=== PATIENT | female | born 1955 | race Caucasian/White ===

== ENCOUNTER → 2017-12-21 | Outpatient (CLI) | payer OTHER ==
--- NOTE | 2017-12-21 23:05 | MR ---
EXAMINATION TYPE: MR cervical spine wo con DATE OF EXAM: 12/21/2017 COMPARISON: NONE HISTORY: TECHNIQUE: Multiplanar, multisequence images of the cervical spine were acquired. The cervical vertebra have normal alignment. There is mild narrowing and decreased signal in the disk s at C5-6 C6-7. There are small posterior disc bulges at C5-6 C6-7 with small herniations. Cervical s pan cord has normal signal pattern. There is no edema. There is no spinal stenosis. Canal measures 9 mm at C6-7 and 9 mm at C5-6. The brainstem is intact. There is no compression fracture. I see no fo stacey bone destruction. IMPRESSION: Multilevel small posterior disc bulging and herniation from C3 to T1 T2 disc. No spinal stenosis. No fracture.
== END | disposition home or self-care (01) ==
LOC: RADMRIMAIN 18:35
PROVIDERS: ATTEND Internal Medicine
DX: M50.23 Other cervical disc displacement, cervicothoracic region (principal)
CPT/HCPCS: 72141

== ENCOUNTER → 2018-03-07 | Outpatient (CLI) | payer OTHER ==
[2018-03-07 12:52] VITALS: RESP 18
[2018-03-07 13:31] VITALS: BP 116/69; PULSE 53
--- NOTE | 2018-03-07 13:39 | P.PAINPG ---
Subjective Progress Note Date: 03/07/18 Principal diagnosis: Cervical radiculopathy, low back pain This is a very pleasant 62-year-old woman with a history of long-standing low back pain as well as neck pain. Today she reports that her back pain is worse than her neck pain. It is mainly centered in her low back over her upper buttocks region. She works as a secretary to the vice president and finds that this exacerbates her pain. She also complains of pain which shoots down her right arm from her shoulder to about her elbow. This is worse with axial rotation to her neck. She has dissipated in physical therapy on multiple occasions. She sees a chiropractor every 2 weeks. She has not found anything which effectively relieves her symptoms. She denies bowel or bladder dysfunction. Objective - Vital Signs Vital signs: Vital Signs Temp Pulse 53 L 03/07/18 12:55 Resp 18 03/07/18 12:55 BP 116/69 03/07/18 12:55 Pulse Ox 100 03/07/18 12:55 Intake & Output 03/06/18 03/07/18 03/07/18 18:59 06:59 18:59 Weight 63.503 kg - Exam General: The patient is alert and oriented. Patient is not sedateded Patient is a question appropriately. Cardiac: Heart is regular in rate and rhythm Respiratory: Clear to auscultation. No audible wheezes. Abdomen: Soft nontender nondistended. Lower extremities: Strength is normal bilaterally. Sensation is normal bilaterally. Reflexes are preserved and symmetric bilaterally. Straight leg raise is negative bilaterally. Sacroiliac maneuvers are positive for exacerbation of symptoms bilaterally. She is also minimally tender over the lumbar facets bilaterally. Spurling's maneuver is positive. She demonstrates normal strength in the upper extremities. Reflexes are normal in the upper extremities as well. Assessment and Plan Assessment: Plan of Care 1. Medications: Patient currently takes no medications and is not interested in taking any medications to treat her problems. I do not think that chronic opiates would play any role in her care. . 2. Interventions: We'll schedule patient for bilateral sacroiliac joint injections. She will then follow up in our week after she undergoes these injections. If these are not helpful for her, we will order an MRI of her lumbar spine to evaluate for disc pathology. 3. Referrals: Patient may benefit from a referral to a hotel concierge given her multiple arthritic complaints. I suggest this to her for discussion with her primary care physician. 4. Testing: None 5. Psychological: She denies significant depression or anxiety. (1) Bilateral sacroiliitis Current Visit: Yes Status: Acute Code(s): M46.1 - SACROILIITIS, NOT ELSEWHERE CLASSIFIED SNOMED Code(s): 07430194 (2) Cervical radiculopathy Current Visit: Yes Status: Acute Code(s): M54.12 - RADICULOPATHY, CERVICAL REGION SNOMED Code(s): 00687623 PQRS Measure Charge Sheet Measure #130: Documentation of Current Meds in Medical Chart: Patient's medications documented in chart Measure #226: Tobacco Use: Screen & Cessation Intervention: Pt not a tobacco user Measure #111: Pneumonia Vaccination: Pneumococcal vaccine NOT administered or previously given Measure #47: Advance Care Plan: Advance care planning discussed & documented, pt chose/unable to give Measure #412: Opioid Treatment Agreement: No documentation of signed opioid treatment agreement Measure #408: Opioid Therapy Follow-up Evaluation: Patient had NO f/u eval minimum every 3 months during opioid therapy Measure #317: Preventitive Care & Scrn High Bld Press & F/U: Normal blood pressure, f/u not required Measure #128: Body Mass Index (BMI) Screening & Follow-up: BMI documented ABOVE normal parameters - f/u documented Measure #131: Pain Assessment & Follow-up: Pain positive & plan documented Measure #431: Unhealthy Alcohol Use Preventative Care & Scrn: Patient not identified as an unhealthy alcohol user PQRS Narrative: Smoking Status Never smoker Do You Want the Pneumonia No Vaccine AT THIS TIME? Blood Pressure 116/69 Pain Intensity [Lower Back] 8 Pain Intensity [Neck] 7 Hx Alcohol Use (MH) Yes: SOCIAL Home Medications: Ambulatory Orders Albuterol Inhaler [Ventolin Inhaler] 1 - 2 puff INHALATION Q4-6H PRN 04/25/14 Escitalopram [Lexapro] 5 mg PO HS 04/25/14 Estrogens, Conjugated [Premarin] 0.3 mg PO DIRECTED 04/25/14 Fluticasone/Salmeterol [Advair 250-50 Diskus] 1 puff IH DAILY 04/25/14 Montelukast [Singulair] 10 mg PO HS 04/25/14 Controlled Substance Measures - Controlled Substance Measures Is patient prescribed a controlled substance at discharge?: No
== END | disposition home or self-care (01) ==
LOC: PNWHC3 12:19
PROVIDERS: ATTEND Pain Medicine Pain Medicine
DX: M46.1 Sacroiliitis, not elsewhere classified (principal); M54.12 Radiculopathy, cervical region; Z79.899 Other long term (current) drug therapy; Z79.51 Long term (current) use of inhaled steroids
CPT/HCPCS: 99211

== ENCOUNTER 2018-03-27 06:26 | Day surgery (SDC) | payer OTHER ==
[2018-03-22 15:54] VITALS: BMI 21.2
[2018-03-27 06:59] VITALS: RESP 16; TEMP 98.3
[2018-03-27] MEDS ORDERED: LIDOCAINE 1% 20 ML VIAL (10MG/ML) FOR IV START SQ ONE (06:59)
[2018-03-27] MEDS ORDERED: LACTATED RINGERS 1,000 ML IV SCH (07:00)
--- NOTE | 2018-03-27 07:44 | P.PCN ---
Date of Procedure: 03/27/18 Procedure(s) Performed: Preoperative diagnoses= 1-bilateral sacroiliitis. 2-cervical radiculopathy Postoperative diagnoses= same as preoperative diagnosis. Procedure= bilateral sacroiliac joint steroid injection under fluoroscopic guidance. Anesthesia= moderate sedation with Versed 2 mg and fentanyl 50 micrograms and local infiltration with lidocaine 1% 4 ml Estimated blood loss=minimal. Procedure indication= the patient had a history of severe chronic low back pain , diagnosed with sacroiliitis and lumbar sacral facet arthropathy unresponsive to conservative treatment. Procedure description= the patient was seen and identified in the preoperative holding area, risks and benefits and alternative of the procedure and possible complications discussed with the patient, and he agreed with the preceding, patient signed the consent, an IV was started, and vital signs were monitored and were stable throughout the procedure, patient was placed in the prone position or table and the lumbosacral area was prepped and draped with a sterile fashion, vital signs were closely monitored during the procedure, the fluoroscopy camera was placed in the contralateral oblique view on the right sacroiliac joint and the lower part of the joint was identified, local infiltration of the skin and subcutaneous tissue with lidocaine 1% 2 mL then a 22-gauge Quincke-type spinal needle advanced slowly under fluoroscopy and placed in the posterior and inferior border of the right sacroiliac joint, placement confirmed with AP and lateral view, and after appropriate needle placement confirmed and after negative aspiration for heme and CSF and there was no paresthesia during the injection, 3 ml of Marcaine 0.5% and 40 mg of Kenalog injected after negative aspiration, the needle removed, and the entire same procedure was repeated for the left sacroiliac joint Patient tolerated the procedure well without any complication, The patient returned to supine position after the back was cleaned and a Band- Aid applied, the patient transported to recovery room in stable condition and he was monitored for 30 minutes before he was discharged home and then patient was reexamined before going home and patient was discharged in stable condition and patient will follow up with the pain clinic in a few weeks
[2018-03-27] MEDS ORDERED: IV FLUID CONTINUATION 1,000 ML IV ONE (07:49)
--- NOTE | 2018-03-27 08:09 | FL ---
EXAMINATION TYPE: FL guided pain mgmt statistic DATE OF EXAM: 03/27/2018 FLUOROSCOPY Fluoroscopy time of 6 seconds was used during bilateral SI joint injections. 2 image/s document/s th e procedure.
[2018-03-27 08:20] VITALS: BP 109/70; PULSE 51
== END 2018-03-27 09:56 | disposition home or self-care (01) ==
LOC: ORPAIN 06:26
PROVIDERS: ATTEND Specialist
DX: G89.29 Other chronic pain (principal); M46.1 Sacroiliitis, not elsewhere classified; M54.12 Radiculopathy, cervical region; J45.909 Unspecified asthma, uncomplicated; I34.1 Nonrheumatic mitral (valve) prolapse; Z88.6 Allergy status to analgesic agent; Z98.51 Tubal ligation status
CPT/HCPCS: 27096; J2250; J3301; J3010

== ENCOUNTER → 2020-08-05 | Outpatient (CLI) | payer MEDICARE ==
--- NOTE | 2020-08-05 08:43 | BD ---
EXAMINATION TYPE: Axial Bone Density DATE OF EXAM: 08/05/2020 COMPARISON: 03/27/2014 CLINICAL HISTORY: Postmenopausal female. Known osteoporosis. Height: 67 IN Weight: 143 LBS FRAX RISK QUESTIONS: Secondary Osteoporosis: 3. Menopause before 45: PARTIAL HYST AGE 41 RISK FACTORS HISTORY OF: Active: YES Postmenopausal woman: PARTIAL HYST AGE 41 Take estrogen and/or progesterone medications: YES How long: PREMARIN CREAM OFF AND ON 10 YEARS MEDICATIONS: Thyroid Medications: YES Which medication: Levothyroxine How Lon YEARS Additional Medications: CALCIUM, MAGNESIUM, ZINC, LEVOTHYROXINE, PREMARIN CREAM, ASTHMA MEDS, VIT D, ZETIA, LEXAPRO, EXAM MEASUREMENTS: Bone mineral densitometry was performed using the [email or web address] System. Bone mineral density as measured about the Lumbar spine is: ----- L1-L4(G/cm2): 1.130 T Score Values are as follows: ----- L2: -0.2 ----- L3: 0.3 ----- L4: -1.3 ----- L1-L4: -0.4 Bone mineral density has: Decreased -5.1% since study of: 03/27/2014 Bone mineral density about the R hip (g/cm2): 0.854 Bone mineral density about the L hip (g/cm2): 0.850 T Score values are as follows: -----R Neck: -1.3 -----L Neck: -1.3 -----R Total: -0.5 -----L Total: -0.6 Bone mineral density has: Decreased -2.2% since study of: 03/27/2014 IMPRESSION: Osteopenia (T Score between -2.5 and -1) remains present in both hips. There remains slightly increased risk of fracture and the patient may be considered for treatment. Re-Screen 2-5 years. NOTE: T-SCORE=SD OF THE YOUNG ADULT MEAN.
== END | disposition home or self-care (01) ==
LOC: RADBDWWP 07:52
PROVIDERS: ATTEND Internal Medicine
DX: M85.89 Other specified disorders of bone density and structure, multiple sites (principal)
CPT/HCPCS: 77080

== ENCOUNTER → 2021-04-17 | Outpatient (CLI) | payer OTHER | END | disposition home or self-care (01) ==

== ENCOUNTER → 2021-04-29 | Outpatient (CLI) | payer MEDICARE ==
[2021-04-29 08:08] LABS: African American GFR (CKD) >90 (>60 ml/min/1.73 sqM); Blood Urea Nitrogen 14 mg/dL (7-17); Non-African American GFR(CKD) 88 (>60 ml/min/1.73 sqM)
--- NOTE | 2021-04-29 09:29 | CT ---
EXAMINATION TYPE: CT abdomen pelvis w con DATE OF EXAM: 04/29/2021 COMPARISON: None HISTORY: Frequent UTIs, abn US, Lt sided pain CT DLP: 459 mGycm CONTRAST: CT scan of the abdomen and pelvis is performed with Oral Contrast and with IV Contrast, patient injec anirudh with 100 mL of Isovue 300. FINDINGS: LUNG BASES-: No visible nodule. No infiltrate. Small hiatal hernia LIVER/GB: No calcified gallstones. No space occupying hepatic lesion. Biliary tree is of normal ca liber. PANCREAS: No inflammation. No distinct mass. SPLEEN: No splenic enlargement. No lesion seen. ADRENALS: No nodule. No thickening. KIDNEYS/BLADDER: No hydronephrosis. No nephrolithiasis. No distinct renal mass. Urinary bladder g rossly unremarkable. BOWEL: Normal appendix. Normal bowel caliber. No inflammation. Moderate fecal stasis. GENITAL ORGANS: No gross abnormality. LYMPH NODES: No greater than 1cm abdominal or pelvic lymph nodes are appreciated. AORTA: No significant abnormality. OSSEOUS STRUCTURES: No significant abnormality is seen. OTHER: No significant additional abnormality is seen. IMPRESSION: 1. Moderate fecal stasis. 2. Small hiatal hernia.
== END | disposition home or self-care (01) ==
LOC: RADCTMAIN 07:20
PROVIDERS: ATTEND Internal Medicine
DX: R19.5 Other fecal abnormalities (principal); K44.9 Diaphragmatic hernia without obstruction or gangrene
CPT/HCPCS: 82565; 84520; 74177; 36415; Q9967

== ENCOUNTER → 2021-05-26 | Outpatient (CLI) | payer MEDICARE | END | disposition home or self-care (01) | LOC: LABWHC1 12:43 | PROVIDERS: ATTEND Ophthalmology | DX: M35.00 Sjogren syndrome, unspecified (principal) | CPT/HCPCS: 36415; 86235 ==

== ENCOUNTER → 2022-08-06 | Outpatient (CLI) | payer MEDICARE ==
--- NOTE | 2022-08-06 15:52 | MR ---
EXAMINATION TYPE: MR lumbar spine wo con DATE OF EXAM: 08/06/2022 2:46 PM COMPARISON: 05/31/2022. CLINICAL INDICATION:Female, 67 years old with history of M54.50 Low back pain; TECHNIQUE: Multi planar, multi sequence imaging was performed utilizing: T1-weighted, T2-weighted, a nd turbo inversion recovery imaging of the lumbar spine. IV Contrast: None FINDINGS: Alignment: The lumbar vertebral bodies have preserved heights with grade 1 anterolisthesis of L4 and L5. Cord: The conus medullaris and the distal spinal cord appear unremarkable with regards to their signa l intensity and morphology. Bones/Discs: Reactive bone edema is noted at the adjoining endplates of L2 and L3. Multilevel degener ative disc disease is noted and most pronounced at the L2-L3. Multilevel disc desiccation is present. L1-L2: No significant disc pathology. Spinal canal is patent. The neural foramen are patent. L2-L3: No significant disc pathology. Spinal canal is patent. The neural foramen are patent. L3-L4: Disc bulge and facet joint arthropathy without significant spinal canal or neural foraminal st enosis. L4-L5: Disc uncovering is present. There is mild disc bulging and facet joint arthropathy which narro ws the ventral subarachnoid space. Spinal canal is patent. Mild bilateral neural foraminal stenosis. L5-S1: No significant disc pathology. Spinal canal is patent. Bilateral facet arthropathy is present. The neural foramen are patent. Other findings: None. IMPRESSION: 1. No definitive evidence of disc herniation or significant spinal canal stenosis. 2. Multilevel disc degeneration with associated osteoarthritic changes worse at L2-L3 with reactive bony edema.
== END | disposition home or self-care (01) ==
LOC: RADMRIMAIN 14:05
PROVIDERS: ATTEND Internal Medicine
DX: M51.36 Other intervertebral disc degeneration, lumbar region (principal); M47.816 Spondylosis without myelopathy or radiculopathy, lumbar region
CPT/HCPCS: 72148

== ENCOUNTER → 2022-08-30 | Outpatient (CLI) | payer MEDICARE ==
[2022-08-30 12:24] VITALS: BP 159/82; PULSE 61; RESP 18; TEMP 97.9
--- NOTE | 2022-08-30 14:51 | P.PAINPG ---
PQRS Measure Charge Sheet Comment: HISTORY OF PRESENT ILLNESS: 67 yr old female as a referral from Dr Lau presents today w severe and chronic LBP secondary to DDD and BL sacroiliitis for evaluation. Pt states pain level is at 8/10 in intensity, constant, localized in the lower lumbar spine, achy in character w constant shooting pain towards R hip and BLEs. Pain is provoked by lifting, bending. Pain is alleviated by PT x 4 wks in Jul 2022, currently in chiropractic treatments semi monthly for years, heat, ice, meds (Ibu, Aleve), topicals, home exercise as tolerated, reclining and rest. PMH: OA, Asthma PSH: Colonoscopy (2013), BL SI injection (2018), T & A in childhood, Breast Biopsy, Hysterectomy w Partial Oophorectomy SH: Negative x 3 FH: Fa- Asthma/ Colon CA. Mo- MD/ CVA. All: See list Meds: See list REVIEW OF ORGAN SYSTEMS: CONSTITUTIONAL: No fevers or chills. No recent weight loss. NEUROLOGICAL: + numbness and tingling along the distal extremities. No seizure disorders or headaches. MUSCULOSKELETAL: + pain PSYCHIATRIC: Denies current depression or suicidal thoughts. Physical Examinations : Constitutional : Cooperative , not in acute distress . Neurologic : Cranial nerve II to XII intact. No focal neurological deficits. Psychiatric : alert & oriented x 3. Matching mood & appropriate affect. Judgment & insight intact. Musculoskeletal : Cervical Spine Motor strength in the deltoid and biceps: Normal right side. Normal Left side Motor strength biceps and the wrist extensors: Normal right side . Normal left side Motor strength in the triceps muscle: Normal right side. Normal left side Deep tendon reflexes: Normal at the biceps. Normal at Brachioradialis. Normal at triceps Vertebral body tenderness to deep palpation over Cervical facet loading test: positive bilaterally Spurling test: positive bilaterally Neck distraction test: positive bilaterally Lisa sign: positive bilaterally Lumbar spine Motor strength lower extremities ,thigh and legs 5/5 Right side , 5/5 Left side Deep tendon reflexes : Normal Knee Jerk. Normal Ankle Jerk Vertebral body tenderness over Lumbar facet Loading Test: positive Right / positive Left Range of motion of the lumbar spine Flexion 30 degrees, extension 10 degrees Straight Leg Raise test: Left/ Right positive at degree Gualberto test: positive right / positive left. Severe tenderness over the Sacroiliac joint on the Right / Left sides Gaenslen test: positive bilaterally Seated flexion test: positive bilaterally. Sacral spine : Severe tenderness over the Sacroiliac joint: right side / left side Range of motion: Flexion of the lumbar spine <60 degrees Range of motion: Extension of the lumbar spine <20 degrees Gaenslen's Test positive BL Gualberto test: positive right side / left side Thigh Thrust Test on L R Sacral Thrust Test Imaging: MRI without contrast of the lumbar spine from 08/06/22 reviewed Assessment/ Plan : Lumbar DDD Recommendation of BL SI injection. May need a series of injections, up to 4 within a 12 mo period, for optimal pain relief. Risks, benefits of procedure discussed and patient verbalized understanding. Denies aspirin or anti- coagulant use or medical history of diabetes. Protocol for discontinuation/ continuation of medications rk procedure discussed. All questions answered. I have spent greater than 30 minutes on patient care today. Dr Ho was available by phone for the evaluation of this patient. The time was used to review the medical records including relevant urine studies and Prescription hi story (MAPs), review of the available imaging, evaluation and examination of the patient, coordination of care with the medical staff and if applicable referring physicians, as well as creation of the medical record PQRS Narrative: Smoking Status Never smoker Hx Alcohol Use (MH) Yes: SOCIAL Home Medications: Ambulatory Orders Albuterol Inhaler [Ventolin Inhaler] 1 - 2 puff INHALATION Q4-6H PRN 04/25/14 Escitalopram [Lexapro] 5 mg PO HS 04/25/14 Montelukast [Singulair] 10 mg PO HS 04/25/14 Budesonide/Formoterol Fumarate [Symbicort 160-4.5 Mcg Inhaler] 1 puff INHALATION BID 03/22/18 Controlled Substance Measures - Controlled Substance Measures Is patient prescribed a controlled substance at discharge?: No
== END ==
LOC: PNWHC3 11:13
PROVIDERS: ATTEND Specialist
DX: M51.36 Other intervertebral disc degeneration, lumbar region (principal); Z88.6 Allergy status to analgesic agent
CPT/HCPCS: 99211

== ENCOUNTER 2022-10-05 11:03 | Day surgery (SDC) | payer MEDICARE ==
[~2022-10-05 11:03] MED LIST: LACTATED RINGERS 1,000 ML IV SCH; LIDOCAINE 1% (10MG/ML) FOR IV START INTRADERMA PRN
[2022-10-05 11:50] VITALS: TEMP 98
[2022-10-05] MEDS ORDERED: MIDAZOLAM 2 MG/2 ML VIAL ONE (12:18)
[2022-10-05] MEDS ORDERED: fentaNYL (PF) 50 MCG/ML 2 ML AMP ONE (12:18)
[2022-10-05] MEDS ORDERED: ROPIVACAINE 5 MG/ML 20 ML AMPULE ONE (12:18)
[2022-10-05] MEDS ORDERED: methylPREDNISolone ACETATE 80 MG/ML 1 ML VIAL ONE (12:18)
--- NOTE | 2022-10-05 12:29 | P.PCN ---
Date of Procedure: 10/05/22 Procedure(s) Performed: Procedure= bilateral sacroiliac joints steroid injection under fluoroscopy guidance (fluoroscopy image stored on file in the radiology Department ) Preoperative diagnosis= 1-sacroiliitis Postoperative diagnosis=Same as preop Diagnosis . Complication = none Condition= stable Anesthesia= moderate sedation with intravenous Versed 2 mg , and fentanyl 50 micrograms . Sedation start time:12:21 Sedation end time : 12:27 Indication for the procedure= patient complaining of low back pain , examination was positive for severe tenderness over the sacroiliac joints bilaterally and patient diagnosed with sacroiliitis, for this reason , she was good candidate for sacroiliac joint steroid injection. Description of the procedure= procedure risk and benefits discussed with the patient, including but not limited, risk of infection and bleeding, and ALLERGIC reaction to the medication and not complete pain relief and patient agreed with the preceding patient taken to the operating room, placed in prone position or standard monitors applied to the patient then after induction of anesthesia back prepped with chlorhexidine 3 times , Then under strict sterile technique, first I did the right sacroiliac joint the which was identified under fluoroscopy guidance been local infiltration of the skin and subcu interstitial with lidocaine 1% then 22-gauge Quincke Needle advanced slowly under fluoroscopy and placed in the right sacroiliac joint needle placement confirmed with AP and oblique and lateral view and after appropriate needle placement confirmed and after negative aspiration, or heme , then Ropivacaine 0.5% 4 mL, and 30 mg of Depo-Medrol mixed together and injected in the right sacroiliac joint after negative aspiration patient tolerated the procedure well without any complication. Then the left sacroiliac joint steroid injection done under strict sterile technique local infiltration of the skin and subcu interstitial at the location of the left sacroiliac joint then a 22-gauge Quincke Needle advanced slowly under fluoroscopy time placed in the left sacroiliac joint, needle placement confirmed with AP and oblique and lateral view then after appropriate needle placement confirmed and after negative aspiration 0.5% Ropivacaine 4 mL and 30 mg of Depo-Medrol injected in the left sacroiliac joint after negative aspiration patient tolerated the procedure well that any complications and she will follow up in clinic 3 weeks
[2022-10-05] MEDS ORDERED: LACTATED RINGERS 800 ML IV ONE (12:32)
[2022-10-05 12:35] VITALS: RESP 16
[2022-10-05 12:49] VITALS: BP 126/77; PULSE 65
--- NOTE | 2022-10-05 12:49 | FL ---
Intraoperative/procedural fluoroscopic services were provided for bilateral SI joint injection. Total fluoroscopy time is 3 seconds with a total of 2 submitted images to PACS. Please see the operative n ote for further details.
== END 2022-10-05 13:02 | disposition home or self-care (01) ==
LOC: ORPAIN 11:03
PROVIDERS: ATTEND Specialist
DX: M46.1 Sacroiliitis, not elsewhere classified (principal)
CPT/HCPCS: J2250; J1040; J3010; J2795; G0260

== ENCOUNTER → 2022-10-25 | Outpatient (CLI) | payer MEDICARE ==
[2022-10-25 11:15] VITALS: BP 124/79; PULSE 50; RESP 18; TEMP 98.1
--- NOTE | 2022-10-25 15:23 | P.PAINPG ---
Objective - Vital Signs Vital signs: Vital Signs Temp 98.1 F 10/25/22 11:11 Pulse 50 L 10/25/22 11:11 Resp 18 10/25/22 11:11 BP 124/79 10/25/22 11:11 Pulse Ox 98 10/25/22 11:11 FiO2 PQRS Measure Charge Sheet Mode of Arrival: Ambulatory Comment: A 67 yr old female with a history of severe and chronic low back pain secondary to lumbar DDD and spondylosis with facet arthropathy without myelopathy presents today for evaluation s/p BL SI injection. Pt states she experienced 50 % pain relief x 2 wks s/p procedure. Pain level is provoked at 6 /10 in intensity, constant, localized in the lumbar spine, achy/ tight in character w shooting towards the L hip and groin. Pain is provoked by bending, walking. Pain is alleviated with PT in May 2022, home exercise as tolerated, chiropractic treatments semin monthly, alternating heat & ice, meds (Motrin, Aleve OTC), sitting and rest. Interventional pain procedures completed include BL SI injection Patient is currently on Motrin OTC, Aleve OTC Patient denies any side effects of the medication(s), denies excessive drowsiness or sleepiness, denies suicidal ideation and reports that the current pain medication is helping to control the pain and improve activities of daily living. Patient denies any motor or sensory deficits. Patient denies any fever or night sweats, denies any change in the bowel movements or urination. Physical Examination: -Constitutional: Cooperative. Not in acute distress . - Neurologic: Cranial nerve II to XII intact. No focal neurological deficits. - Psychatric: Alert & oriented x 3. Matching mood & appropriate affect. Judgment and insight intact. - Musculoskeletal: Cervical spine: Muscle bulk/ tone/ strength in the bilateral upper extremities normal Vertebral body tenderness to palpation over Spurling test positive Distraction test positive Facet loading test positive Thoracic spine Muscle bulk / tone/ strength in the bilateral paraspinal muscles normal Vertebral body tender to palpation over Facet loading test positive Lumbar spine: Motor bulk/ tone/ strength lower extremities , thigh and legs : 5/5 Deep tendon reflexes : Normal Knee Jerk. Normal Ankle Jerk . Vertebral body tenderness to palpation over L4 Lumbar Facet Loading Test positive Straight Leg Raise: positive at 30 degrees right side/ left side Gaenslen's Test positive Sacral spine : Severe tenderness over the Sacroiliac joint: right side / left side Range of motion: Flexion of the lumbar spine <60 degrees Range of motion: Extension of the lumbar spine <20 degrees Gaenslen's Test positive Gualberto test: positive right side / left side Thigh Thrust Test Sacral Thrust Test Assessment and plan: Chronic low back pain secondary to lumbar degenerative disc disease, spondylosis with facet arthropathy without myelopathy Recommendation of FORTUNATO L paramedian L4-L5 #1. May need a series of injections, up to 3 within a 6 mo period, for optimal pain relief. Risks, benefits of procedure discussed and pt verbalized understanding. Admits to anticoagulant use or medical history of diabetes. Protocol for discontinuation/ continuation of medications rk procedure discussed. All patient questions answered I have spent less than 30 minutes on patient care today. Dr Ho was available by phone for the evaluation of this patient. The time was used to review the medical records including relevant urine studies and Prescription history (MAPs), review of the available imaging, evaluation and examination of the patient, coordination of care with the medical staff and if applicable referring physicians, as well as creation of the medical record - Pain Location Lower Back Non-Pharmacological Interventions: Chiropractic Treatment, Heat, Home Exercise, Ice, Inactivity, Physical Therapy, Position/Reposition, Sitting, Stretching Pharmacological Interventions: PRN Medication, Topical Medication PQRS Narrative: Smoking Status Never smoker Blood Pressure 124/79 Pain Intensity [Lower Back] 6 Scale Used Numeric (1 - 10) Hx Alcohol Use (MH) Yes: SOCIAL Home Medications: Ambulatory Orders Albuterol Inhaler [Ventolin Inhaler] 1 - 2 puff INHALATION Q4-6H PRN 04/25/14 Escitalopram [Lexapro] 5 mg PO HS 04/25/14 Montelukast [Singulair] 10 mg PO HS 04/25/14 Budesonide/Formoterol Fumarate [Symbicort 160-4.5 Mcg Inhaler] 1 puff INHALATION BID 03/22/18 Ezetimibe [Zetia] 10 mg PO HS 09/30/22 Levothyroxine Sodium [Synthroid] 50 mcg PO QAM 09/30/22 Omeprazole 20 mg PO QAM 09/30/22 Controlled Substance Measures - Controlled Substance Measures Is patient prescribed a controlled substance at discharge?: No
== END ==
LOC: PNWHC3 10:58
PROVIDERS: ATTEND Specialist
DX: M47.816 Spondylosis without myelopathy or radiculopathy, lumbar region (principal); M51.36 Other intervertebral disc degeneration, lumbar region; Z88.6 Allergy status to analgesic agent
CPT/HCPCS: 99211

== ENCOUNTER 2023-01-18 08:47 | Day surgery (SDC) | payer MEDICARE ==
[~2023-01-18 08:47] MED LIST changes: -LIDOCAINE 1% (10MG/ML) FOR IV START INTRADERMA PRN
[2023-01-18] MEDS ORDERED: MIDAZOLAM 2 MG/2 ML VIAL ONE (09:17)
[2023-01-18] MEDS ORDERED: methylPREDNISolone ACETATE 40 MG/ML 1 ML VIAL ONE (09:17)
[2023-01-18] MEDS ORDERED: IOPAMIDOL M200 10 ML VIAL ONE (09:17)
[2023-01-18] MEDS ORDERED: ROPIVACAINE 5 MG/ML 20 ML AMPULE ONE (09:17)
[2023-01-18 09:19] VITALS: TEMP 96.9
--- NOTE | 2023-01-18 09:32 | P.PCN ---
Date of Procedure: 01/18/23 Description of Procedure: Procedure: Sacroiliac joint injection bilateral Preoperative diagnosis: Sacroiliitis Postoperative diagnosis: Sacroiliitis Imaging: Fluoroscopy was used, images where saved to the medical record Complications: none ANESTHESIA: Medication Administered by: Nurse Sedation Type: Moderate sedation Sedation Supervision start time: 917 Sedation Supervision end time: 929 Description of the procedure: procedure risk and benefits discussed with the patient, including but not limited, risk of infection and bleeding, and allergic reaction to the medication and incomplete pain relief. Patient agreed and signed consent. Patient was taken to the room and placed in a prone position. Chlorhexidine was used to cleanse the skin. Under sterile conditions patient skin was anesthetized 1% lidocaine. Subcutaneous tissues were also anesthetized with a total 5 mL of 1% lidocaine. After that, a 22-gauge spinal needle was advanced through the anesthetized location under fluoroscopic guidance. Needle was advanced into the inferior portion of the sacroiliac joint. IV contrast was used to confirm spread within the joint. After adequate spread was achieved, 2.5 ML's of 0.5% ropivacaine with 40 mg of depomedrol was injected into the joint (steroid split between both sides if bilateral). Patient tolerated the procedure well. Sent to the recovery room in stable condition. Patient will follow up as directed.
[2023-01-18] MEDS ORDERED: IV FLUID CONTINUATION 1,000 ML IV ONE (09:40)
--- NOTE | 2023-01-18 09:50 | FL ---
Intraoperative/procedural fluoroscopic services were provided. Total fluoroscopy time is 12.61 second s with a total of 1 submitted images to PACS. Please see the operative/procedural note for further de tails. DAP: [phone]
[2023-01-18 10:05] VITALS: BP 146/77; PULSE 55; RESP 18
== END 2023-01-18 10:25 | disposition home or self-care (01) ==
LOC: ORPAIN 08:47
PROVIDERS: ATTEND Hospitalist
DX: M46.1 Sacroiliitis, not elsewhere classified (principal)
CPT/HCPCS: 99152; J2250; J1030; Q9966; J2795; G0260

== ENCOUNTER → 2023-02-21 | Outpatient (CLI) | payer MEDICARE ==
[2023-02-21 13:16] VITALS: BP 133/78; PULSE 61; RESP 18; TEMP 98.4
--- NOTE | 2023-02-21 13:37 | P.PAINPG ---
PQRS Measure Charge Sheet Comment: A 67 yr old female with a history of severe and chronic LBP secondary to lumbar DDD and spondylosis with facet arthropathy without myelopathy presents today for evaluation s/p[ BL SI injection. Pt states she experienced 100% pain relief x 3 wks s/p procedure. Pain level is provoked at 6/10 in intensity, co nstant, localized in the lumbar spine, achy in character w shooting towards the BL buttocks. Pain is provoked by lifting, sitting. Pain is alleviated with PT x 4 wks in May 2022, chiropractic treatments semi monthly x yrs which she is currently in, medications, topicals, ice, walking, repositioning and rest. Interventional pain procedures completed include BL SI injection Patient is currently on Aleve, Ibu Patient denies any side effects of the medication(s), denies excessive drowsiness or sleepiness, denies suicidal ideation and reports that the current pain medication is helping to control the pain and improve activities of daily living. Patient denies any motor or sensory deficits. Patient denies any fever or night sweats, denies any change in the bowel movements or urination. Physical Examination: -Constitutional: Cooperative. Not in acute distress . - Neurologic: Cranial nerve II to XII intact. No focal neurological deficits. - Psychatric: Alert & oriented x 3. Matching mood & appropriate affect. Judgment and insight intact. - Musculoskeletal: Cervical spine: Muscle bulk/ tone/ strength in the bilateral upper extremities normal Vertebral body tenderness to palpation over Spurling test positive Distraction test positive Facet loading test positive TTP Thoracic spine Muscle bulk / tone/ strength in the bilateral paraspinal muscles normal Vertebral body tender to palpation over Facet loading test positive TTP Lumbar spine: Motor bulk/ tone/ strength lower extremities , thigh and legs : 5/5 Deep tendon reflexes : Normal Knee Jerk. Normal Ankle Jerk . Vertebral body tenderness to palpation over Lumbar Facet Loading Test positive Straight Leg Raise: positive at 30 degrees right side/ left side Gaenslen's Test positive Sacral spine : Severe tenderness over the Sacroiliac joint: right side / left side Range of motion: Flexion of the lumbar spine <60 degrees Range of motion: Extension of the lumbar spine <20 degrees +Gaenslen's Test positive right side / left side Gualberto test: positive right side / left side +Thigh Thrust Test positive right side / left side +Sacral Thrust Test positive right side / left side Assessment and plan: Chronic LBP secondary to lumbar DDD, spondylosis with facet arthropathy without myelopathy Recommendation of BL SI injection. May need a series for optimal pain relief. Risks, benefits of procedure discussed and pt verbalized understanding. Admits to anticoagulant use or medical history of diabetes. Protocol for discontinuation/ continuation of medications rk procedure discussed. Minimal anesthesia provided per pt preference consisting of Versed and Fentanyl. All questions answered. I have spent less than 30 minutes on patient care today. Dr Ho was available by phone for the evaluation of this patient. The time was used to review the medical records including relevant urine studies and Prescription history (MAPs), review of the available imaging, evaluation and examination of the patient, coordination of care with the medical staff and if applicable referring physicians, as well as creation of the medical record PQRS Narrative: Smoking Status Never smoker Hx Alcohol Use (MH) Yes: SOCIAL Home Medications: Ambulatory Orders Albuterol Inhaler [Ventolin Inhaler] 1 - 2 puff INHALATION Q4-6H PRN 04/25/14 Escitalopram [Lexapro] 5 mg PO HS 04/25/14 Montelukast [Singulair] 10 mg PO HS 04/25/14 Budesonide/Formoterol Fumarate [Symbicort 160-4.5 Mcg Inhaler] 1 puff INHALATION BID 03/22/18 Ezetimibe [Zetia] 10 mg PO HS 09/30/22 Levothyroxine Sodium [Synthroid] 50 mcg PO QAM 09/30/22 Omeprazole 20 mg PO HS 09/30/22 Calcium Carb/Mag Ox/Zinc Sulf [Lfc-Yvb-Nkbq 334-134-5 mg Tab] 1 each PO DAILY 11/12/22 Carboxymethylcellulose Sodium [Refresh Tears] 1 drop BOTH EYES DIRECTED PRN 11/12/22 Estrogens, Conjugated Cream [Premarin Vaginal Cream] 1 applicator VAGINAL DIRECTED 11/12/22 Ibuprofen [Motrin Ib] 600 mg PO DIRECTED PRN 11/12/22 Multivit-Min/Iron/Folic/Lutein [Centrum Silver Women Tablet] 1 each PO DAILY 11/12/22 Naproxen Sodium [Aleve] 220 - 440 mg PO DIRECTED PRN 11/12/22 Planada-3/Dha/Epa/Fish Oil [Fish Oil 1,000 mg Softgel] 1 each PO DAILY 11/12/22 Ubidecarenone [Co Q-10] 200 mg PO DAILY 11/12/22 Vitamin B Complex 1 each PO DAILY 11/12/22 Controlled Substance Measures - Controlled Substance Measures Is patient prescribed a controlled substance at discharge?: No
== END ==
LOC: PNWHC3 12:26
PROVIDERS: ATTEND Specialist
DX: M51.36 Other intervertebral disc degeneration, lumbar region (principal); M47.816 Spondylosis without myelopathy or radiculopathy, lumbar region; G89.29 Other chronic pain; Z88.6 Allergy status to analgesic agent
CPT/HCPCS: 99211

== ENCOUNTER 2023-06-14 09:50 | Day surgery (SDC) | payer MEDICARE ==
[2023-06-09 15:08] VITALS: BMI 21.2
[2023-06-14 10:26] VITALS: RESP 16; TEMP 97.3
[2023-06-14] MEDS ORDERED: ROPIVACAINE 5MG/ML 20ML VIAL ONE (10:28)
[2023-06-14] MEDS ORDERED: TRIAMCINOLONE ACETONIDE 40 MG/ML 1 ML VIAL ONE (10:28)
--- NOTE | 2023-06-14 10:37 | P.PCN ---
Date of Procedure: 06/14/23 Surgeon: Kristen Rodrigez Pathology: none sent Condition: stable Disposition: PACU Description of Procedure: Preoperative diagnoses= B/L sacroiliac joint dysfunction and sacroiliitis Postoperative diagnoses= same as preoperative diagnosis. Procedure= Bilateral sacroiliac joint steroid injection under fluoroscopic guidance. Anesthesia= local anesthesia with lidocaine 1% Estimated blood loss=minimal. Procedure indication= the patient had a history of severe chronic low back pain, diagnosed with sacroiliitis and lumbar sacral facet arthropathy unresponsive to conservative treatment. Procedure description= the patient was seen and identified in the preoperative holding area, risks and benefits and alternative of the procedure and possible complications discussed with the patient, patient signed the consent. an IV was started, and vital signs were monitored and were stable throughout the procedure, patient was placed in the prone position or table and the lumbosacral area was prepped and draped with a sterile fashion, vital signs were closely monitored during the procedure.The Rt sacroiliac joint was identified on the AP view of fluoroscopy then the C-arm was tilted to the contralateral oblique position to superimpose the anterior and posterior joint lines on each other and to have a unified joint line with the target point at the inferior one third of this line. I used 22-gauge 3-1/2 inch Quincke spinal needle for this procedure and after getting into the sacroiliac joint I injected 20 mg of Kenalog +2 MLS of Ropivacaine 0.5%. The procedure was repeated on the left side in the same manner. Patient tolerated the procedure well without any complication, The patient returned to supine position after the back was cleaned and a Band- Aid applied, the patient transported to recovery room in stable condition and he was monitored for 30 minutes before she was discharged home in stable condition . patient will follow up with the pain clinic in a few weeks. A copy of the needle placement was saved to the C-arm machine.
[2023-06-14 10:59] VITALS: BP 143/72; PULSE 46
--- NOTE | 2023-06-14 12:54 | FL ---
Intraoperative/procedural fluoroscopic services were provided. Total fluoroscopy time is 1.6 seconds with a total of 2 submitted images to PACS. Please see the operative/procedural note for further deta ils. DAP: [phone] mGym2
== END 2023-06-14 11:00 | disposition home or self-care (01) ==
LOC: ORPAIN 09:50
PROVIDERS: ATTEND Anesthesiology
DX: M46.1 Sacroiliitis, not elsewhere classified (principal); J45.909 Unspecified asthma, uncomplicated
CPT/HCPCS: J3301; J2795; G0260

== ENCOUNTER → 2023-11-21 | Outpatient (CLI) | payer MEDICARE ==
--- NOTE | 2023-11-21 22:05 | XR ---
EXAMINATION TYPE: XR cervical spine 3 views DATE OF EXAM: 11/21/2023 Comparison: None Clinical History: 68-year-old female M50.30 OTHER CERVICAL DISC DEGENERATION, UNSP CERV Findings: No predental space widening or prevertebral soft tissue swelling. Moderate disc/endplate degenerative change particularly from C5 through T1 levels with disc space darren rowing and endplate spondylosis. Additional hypertrophic facet and uncovertebral joint arthropathy is present throughout. Normal odontoid view. Trace grade 1 anterolisthesis C4-C5. Remaining alignment is maintained. Impression: Moderate spondylotic change throughout. Degenerative grade 1 anterolisthesis C4-C5.
== END | disposition home or self-care (01) ==
LOC: RADXRMAIN 14:13
PROVIDERS: ATTEND Physician Assistant Medical
DX: M47.812 Spondylosis without myelopathy or radiculopathy, cervical region (principal); M43.12 Spondylolisthesis, cervical region; M50.33 Other cervical disc degeneration, cervicothoracic region
CPT/HCPCS: 72040

== ENCOUNTER → 2023-11-21 | Outpatient (CLI) | payer MEDICARE ==
[2023-11-21 14:05] VITALS: BP 151/92; PULSE 76; RESP 15; TEMP 98.5
--- NOTE | 2023-11-21 14:44 | P.PAINPG ---
Objective - Vital Signs Vital signs: Intake & Output 11/20/23 11/21/23 11/21/23 18:59 06:59 18:59 Weight 66.678 kg PQRS Measure Charge Sheet Comment: A 67 yr old female with a history of severe and chronic LBP secondary to lumbar DDD and spondylosis with facet arthropathy without myelopathy presents today for evaluation . Pain level is provoked at 8/10 in intensity, constant, localized in the lumbar spine, predominantly axial, achy in character w occasinal shooting towards the BL buttocks. Pain is provoked by lifting, sitting. Pain is alleviated with PT x 4 wks in May 2022, chiropractic treatments semi monthly x yrs which she is currently in, medications, topicals, ice, walking, repositioning and rest. Oswestry axial pain score of 25. Also admits to lower cervical pain x 3 mo, 6/10 in intensity, predominantly axial, dull & achy in character without radiation of pain. Pain is provoked w hyperextension. Pain is alleviated slightly w manual massage, medications, ice, topical, repositioning and rest Interventional pain procedures completed include BL SI injection x2 Patient is currently on Aleve, Ibu Patient denies any side effects of the medication(s), denies excessive drowsiness or sleepiness, denies suicidal ideation and reports that the current pain medication is helping to control the pain and improve activities of daily living. Patient denies any motor or sensory deficits. Patient denies any fever or night sweats, denies any change in the bowel movements or urination. Physical Examination: -Constitutional: Cooperative. Not in acute distress . - Neurologic: Cranial nerve II to XII intact. No focal neurological deficits. - Psychatric: Alert & oriented x 3. Matching mood & appropriate affect. Judgment and insight intact. - Musculoskeletal: Cervical spine: Muscle bulk/ tone/ strength in the bilateral upper extremities normal Vertebral body tenderness to palpation over Spurling test positive Distraction test positive Facet loading test positive TTP Thoracic spine Muscle bulk / tone/ strength in the bilateral paraspinal muscles normal Vertebral body tender to palpation over Facet loading test positive TTP Lumbar spine: Motor bulk/ tone/ strength lower extremities , thigh and legs : 5/5 Deep tendon reflexes : Normal Knee Jerk. Normal Ankle Jerk . Vertebral body tenderness to palpation over Lumbar Facet Loading Test positive Straight Leg Raise: positive at 30 degrees right side/ left side Gaenslen's Test positive Sacral spine : Severe tenderness over the Sacroiliac joint: right side / left side Range of motion: Flexion of the lumbar spine <60 degrees Range of motion: Extension of the lumbar spine <20 degrees +Gaenslen's Test positive right side / left side + Gualberto test: positive right side / left side Thigh Thrust Test positive right side / left side + Sacral Thrust Test positive right side / left side Assessment and plan: Chronic LBP secondary to lumbar DDD, spondylosis with facet arthropathy without myelopathy Recommendation of BL SI injection #3. May need a series of injections for optimal pain relief. Risks, benefits of procedure discussed and patient verbalized understanding. Protocol for discontinuation/continuation of medi cations surrounding procedure discussed. Recommendation of cervical X ray, PT x 6 wks M 50.30 RTC for a re evaluation. All questions answered. I have spent less than 30 minutes on patient care today. Dr Ho was available by phone for the evaluation of this patient. The time was used to review the medical records including relevant urine studies and Prescription history (MAPs), review of the available imaging, evaluation and examination of the patient, coordination of care with the medical staff and if applicable referring physicians, as well as creation of the medical record PQRS Narrative: Smoking Status Never smoker Hx Alcohol Use (MH) Yes: SOCIAL Home Medications: Ambulatory Orders Albuterol Inhaler [Ventolin Inhaler] 1 - 2 puff INHALATION Q4-6H PRN 04/25/14 Escitalopram [Lexapro] 5 mg PO HS 04/25/14 Montelukast [Singulair] 10 mg PO HS 04/25/14 Budesonide/Formoterol Fumarate [Symbicort 160-4.5 Mcg Inhaler] 1 puff INHALATION BID 03/22/18 Ezetimibe [Zetia] 10 mg PO HS 09/30/22 Levothyroxine Sodium [Synthroid] 50 mcg PO QAM 09/30/22 Omeprazole 20 mg PO HS 09/30/22 Calcium Carb/Mag Ox/Zinc Sulf [Fur-Tjx-Nemy 334-134-5 mg Tab] 1 each PO DAILY 11/12/22 Carboxymethylcellulose Sodium [Refresh Tears] 1 drop BOTH EYES DIRECTED PRN 11/12/22 Estrogens, Conjugated Cream [Premarin Vaginal Cream] 1 applicator VAGINAL DIRECTED 11/12/22 Ibuprofen [Motrin Ib] 600 mg PO DIRECTED PRN 11/12/22 Multivit-Min/Iron/Folic/Lutein [Centrum Silver Women Tablet] 1 each PO DAILY 11/12/22 Naproxen Sodium [Aleve] 220 - 440 mg PO DIRECTED PRN 11/12/22 Paradox-3/Dha/Epa/Fish Oil [Fish Oil 1,000 mg Softgel] 2 each PO DAILY 11/12/22 Ubidecarenone [Co Q-10] 200 mg PO DAILY 11/12/22 Vitamin B Complex 1 each PO DAILY 11/12/22 nitrofurantoin macrocrystaL [Nitrofurantoin] 100 mg PO ONCE PRN 06/09/23 Controlled Substance Measures - Controlled Substance Measures Is patient prescribed a controlled substance at discharge?: No
== END ==
LOC: PNWHC3 13:16
PROVIDERS: ATTEND Specialist
DX: M51.36 Other intervertebral disc degeneration, lumbar region (principal); M47.816 Spondylosis without myelopathy or radiculopathy, lumbar region; G89.29 Other chronic pain; Z88.6 Allergy status to analgesic agent
CPT/HCPCS: 99211

== ENCOUNTER 2023-12-01 06:52 | Day surgery (SDC) | payer MEDICARE ==
[2023-11-29 12:43] VITALS: BMI 21.2
[2023-12-01 07:53] VITALS: TEMP 98.1
[2023-12-01] MEDS ORDERED: IOPAMIDOL M200 10 ML VIAL ONE (07:58)
[2023-12-01] MEDS ORDERED: ROPIVACAINE 5MG/ML 20ML VIAL ONE (07:58)
[2023-12-01] MEDS ORDERED: methylPREDNISolone ACETATE 80 MG/ML 1 ML VIAL ONE (07:58)
[2023-12-01] MEDS ORDERED: LACTATED RINGERS 1,000 ML IV SCH (08:01)
--- NOTE | 2023-12-01 08:07 | P.PCN ---
Date of Procedure: 12/01/23 Procedure(s) Performed: Procedure= bilateral sacroiliac joints steroid injection under fluoroscopy guidance (fluoroscopy image stored on file in the radiology Department ) Preoperative diagnosis= 1-sacroiliitis 2-lumbar degenerative disc disease 3- lumbar facet arthropathy Postoperative diagnosis=Same as preop Diagnosis . Complication = none Condition= stable Anesthesia= local anesthesia with ropivacaine 0.5% 4 ml only Indication for the procedure= patient complaining of low back pain , examination was positive for severe tenderness over the sacroiliac joints bilaterally and patient diagnosed with sacroiliitis, for this reason ,she was good candidate for sacroiliac joint steroid injection. Description of the procedure= procedure risk and benefits discussed with the patient, including but not limited, risk of infection and bleeding, and ALLERGIC reaction to the medication and not complete pain relief and patient agreed with the preceding patient taken to the operating room, placed in prone position or standard monitors applied to the patient then after induction of anesthesia back prepped with chlorhexidine 3 times , Then under strict sterile technique, first I did the right sacroiliac joint the which was identified under fluoroscopy guidance been local infiltration of the skin and subcu interstitial with lidocaine 1% then 22-gauge Quincke Needle advanced slowly under fluoroscopy and placed in the right sacroiliac joint needle placement confirmed with AP and oblique and lateral view, then after that Isovue 200 one mL injected which confirmed the correct needle placement with the appropriate arthrogram of the sacroiliac joint, and after appropriate needle placement confirmed and after negative aspiration, or heme , then Ropivacaine 0.5% 2 mL, and 30 mg of Depo-Medrol mixed together and injected in the right sacroiliac joint after negative aspiration patient tolerated the procedure well without any complication. Then the left sacroiliac joint steroid injection done under strict sterile technique local infiltration of the skin and subcu interstitial at the location of the left sacroiliac joint then a 22-gauge Quincke Needle advanced slowly under fluoroscopy time placed in the left sacroiliac joint, needle placement confirmed with AP and oblique and lateral view then after appropriate needle placement confirmed, with the AP and oblique and lateral then after negative aspiration Isovue 200 1 mL injected showed arthropathy of the left sacroiliac joint, and after negative aspiration 0.5% Ropivacaine 2 mL and 30 mg of Depo- Medrol injected in the left sacroiliac joint after negative aspiration patient tolerated the procedure well that any complications and she will follow up in clinic 3 weeks
[2023-12-01 11:07] VITALS: BP 174/84; PULSE 56; RESP 18
--- NOTE | 2023-12-01 21:13 | FL ---
EXAMINATION TYPE: FL guided pain mgmt statistic DATE OF EXAM: 12/01/2023 FLUOROSCOPY Fluoroscopy time of 0.6 seconds was used during SI joint pain injection. 2 image/s document/s the pr ghazala.
== END 2023-12-01 12:14 | disposition home or self-care (01) ==
LOC: ORPAIN 06:52
PROVIDERS: ATTEND Specialist
DX: M46.1 Sacroiliitis, not elsewhere classified (principal); M51.36 Other intervertebral disc degeneration, lumbar region; M47.816 Spondylosis without myelopathy or radiculopathy, lumbar region; Z88.5 Allergy status to narcotic agent
CPT/HCPCS: J1040; Q9966; J2795; G0260

== ENCOUNTER → 2024-04-23 | Outpatient (CLI) | payer MEDICARE ==
[2024-04-23 10:13] VITALS: BP 149/87; PULSE 61; RESP 16; TEMP 97.1
--- NOTE | 2024-04-23 15:10 | P.PAINPG ---
PQRS Measure Charge Sheet Comment: A 69 yr old female with a history of severe and chronic LBP secondary to lumbar DDD and spondylosis with facet arthropathy without myelopathy presents today for evaluation s/p BL SI injection #3. Pt states she experienced 90 % pain relief x 3 mo s/p procedure. Pain level is provoked at 8 /10 in intensity, c onstant, localized in the lumbar spine, predominantly axial, achy in character w occasional shooting towards the BL buttocks. Pain is provoked by lifting, sitting. Pain is alleviated with PT x 4 wks in May 2022, chiropractic treatments semi monthly x yrs which she is currently in, medications, topicals, ice, walking, repositioning and rest. Oswestry axial pain score of 25. Also admits to lower cervical pain x 3 mo, 6/10 in intensity, predominantly axial, dull & achy in character without radiation of pain. Pain is provoked w hyperextension. Pain is alleviated slightly w PT x 6 wks which ended in , physician guided home exercise regimen every other day since , manual massage, medications, ice, topical, repositioning and rest. Cervical disability score of . Interventional pain procedures completed include BL SI injection x3 Patient is currently on Aleve, Ibu, Icy-Hot Patient denies any side effects of the medication(s), denies excessive drowsiness or sleepiness, denies suicidal ideation and reports that the current pain medication is helping to control the pain and improve activities of daily living. Patient denies any motor or sensory deficits. Patient denies any fever or night sweats, denies any change in the bowel movements or urination. Physical Examination: -Constitutional: Cooperative. Not in acute distress . - Neurologic: Cranial nerve II to XII intact. No focal neurological deficits. - Psychatric: Alert & oriented x 3. Matching mood & appropriate affect. Judgment and insight intact. - Musculoskeletal: Cervical spine: Muscle bulk/ tone/ strength in the bilateral upper extremities normal Vertebral body tenderness to palpation over Spurling test positive Distraction test positive Facet loading test positive TTP Thoracic spine Muscle bulk / tone/ strength in the bilateral paraspinal muscles normal Vertebral body tender to palpation over Facet loading test positive TTP Lumbar spine: Motor bulk/ tone/ strength lower extremities , thigh and legs : 5/5 Deep tendon reflexes : Normal Knee Jerk. Normal Ankle Jerk . Vertebral body tenderness to palpation over Lumbar Facet Loading Test positive Straight Leg Raise: positive at 30 degrees right side/ left side Gaenslen's Test positive Sacral spine : Severe tenderness over the Sacroiliac joint: right side / left side Range of motion: Flexion of the lumbar spine <60 degrees Range of motion: Extension of the lumbar spine <20 degrees +Gaenslen's Test positive right side / left side + Gualberto test: positive right side / left side Thigh Thrust Test positive right side / left side + Sacral Thrust Test positive right side / left side Imaging: X ray Cervical spine from 11/21/23 reviewed Assessment and plan: Chronic LBP secondary to lumbar DDD, spondylosis with facet arthropathy without myelopathy Recommendation of BL SI injection #4. May need a series of injections for optimal pain relief. Risks, benefits of procedure discussed and patient verbalized understanding. Protocol for discontinuation/continuation of medications surrounding procedure discussed. Recommendation of cervical MRI, provided PT x 6 wks M 50.30 RTC for a re evaluation. All questions answered. I have spent less than 30 minutes on patient care today. Dr Ho was available by phone for the evaluation of this patient. The time was used to review the medical records including relevant urine studies and Prescription history (MAPs), review of the available imaging, evaluation and examination of the patient, coordination of care with the medical staff and if applicable referring physicians, as well as creation of the medical record PQRS Narrative: Smoking Status Never smoker Hx Alcohol Use (MH) Yes: SOCIAL Home Medications: Ambulatory Orders Albuterol Inhaler [Ventolin Inhaler] 1 - 2 puff INHALATION Q4-6H PRN 04/25/14 Escitalopram [Lexapro] 5 mg PO HS 04/25/14 Montelukast [Singulair] 10 mg PO HS 04/25/14 Budesonide/Formoterol Fumarate [Symbicort 160-4.5 Mcg Inhaler] 2 puff INHALATION BID 03/22/18 Ezetimibe [Zetia] 10 mg PO HS 09/30/22 Levothyroxine Sodium [Synthroid] 50 mcg PO QAM 09/30/22 Omeprazole 20 mg PO HS 09/30/22 Calcium Carb/Mag Ox/Zinc Sulf [Mni-Ffz-Rfkp 334-134-5 mg Tab] 1 each PO DAILY 11/12/22 Carboxymethylcellulose Sodium [Refresh Tears] 1 drop BOTH EYES DIRECTED PRN 11/12/22 Estrogens, Conjugated Cream [Premarin Vaginal Cream] 1 applicator VAGINAL DIRECTED 11/12/22 Ibuprofen [Motrin Ib] 600 mg PO DIRECTED PRN 11/12/22 Multivit-Min/Iron/Folic/Lutein [Centrum Silver Women Tablet] 1 each PO DAILY 11/12/22 Naproxen Sodium [Aleve] 220 - 440 mg PO DIRECTED PRN 11/12/22 [place]-3/Dha/Epa/Fish Oil [Fish Oil 1,000 mg Softgel] 2 each PO DAILY 11/12/22 Ubidecarenone [Co Q-10] 200 mg PO DAILY 11/12/22 Vitamin B Complex 1 each PO DAILY 11/12/22 nitrofurantoin macrocrystaL [Nitrofurantoin] 100 mg PO ONCE PRN 06/09/23 Fluticasone Nasal [place] [Flonase Nasal [place]] 2 spray EA NOSTRIL DAILY PRN 11/29/23 Controlled Substance Measures - Controlled Substance Measures Is patient prescribed a controlled substance at discharge?: No
== END ==
LOC: PNWHC3 09:43
PROVIDERS: ATTEND Specialist
DX: M51.36 Other intervertebral disc degeneration, lumbar region (principal); M47.816 Spondylosis without myelopathy or radiculopathy, lumbar region; Z88.6 Allergy status to analgesic agent
CPT/HCPCS: 99211

== ENCOUNTER → 2024-05-28 | Outpatient (CLI) | payer MEDICARE | LOC: PNWHC3 12:45 | PROVIDERS: ATTEND Specialist | DX: M46.1 Sacroiliitis, not elsewhere classified | CPT/HCPCS: 99211 ==

== ENCOUNTER → 2024-11-09 | Outpatient (CLI) | payer MEDICARE ==
--- NOTE | 2024-11-09 14:27 | MM ---
Reason for Exam: Screening (asymptomatic). Last mammogram was performed 1 year(s) and 3 month(s) ago. Patient History: Menarche at age 13. First Full-Term at age 28. Right ovary removed at age 41. Hysterectomy at age 41. Patient has history of breast feeding. Currently using Estrogen, for 8 years. Patient used Hormonal Contraceptives for 2 years. Patient used Estrogen and Progesterone for 2 years. Risk Values: Lacie 5 year model risk: 1.9%. NCI Lifetime model risk: 5.9%. Prior Study Comparison: 11/23/2018 Bilateral Screening Mammogram, [facility]. 12/18/2019 Bilateral Screening Mammogram, [facility]. 08/03/2023 Bilateral Screening Mammogram, [facility]. Tissue Density: The breasts are heterogeneously dense, which may obscure small masses. Findings: Analyzed By CAD. Right breast: There is no suspicious group of microcalcifications or new suspicious mass. Left breast: There is no suspicious group of microcalcifications or new suspicious mass. Overall Assessment: Negative, BI-RAD 1 Management: Screening Mammogram of both breasts in [address] [facility] will attempt to contact patient to return for supplemental views and ultrasound if indicated. Patient should continue monthly self-breast exams. A clinical breast exam by your physician is recommended on an annual basis. This exam should not preclude additional follow-up of suspicious palpable abnormalities. Note on Lacie scores and lifetime risk: 1. A Lacie score greater than 3% is considered moderate risk. If this is the case, consider specialist referral to assess eligibility for a risk reducing agent. 2. If overall lifetime risk for the development of breast cancer is 20% or higher, the patient may qualify for future screening with alternating mammogram and breast MRI. [facility], , 11/09/2024 2:23 PM. Electronically signed and approved by: Lenard Lawton DO
== END | disposition home or self-care (01) ==
LOC: RADMAMWWP 13:53
PROVIDERS: ATTEND Internal Medicine
DX: Z12.31 Encounter for screening mammogram for malignant neoplasm of breast (principal); R92.333 Mammographic heterogeneous density, bilateral breasts
CPT/HCPCS: 77063; 77067

== ENCOUNTER → 2025-01-24 | Outpatient (CLI) | payer MEDICARE ==
[2025-01-24 11:57] VITALS: BP 144/81; PULSE 54; RESP 16
--- NOTE | 2025-01-24 15:24 | P.PAINPG ---
PQRS Measure Charge Sheet Comment: A 69 yr old female with a history of severe and chronic LBP secondary to radiculopathy, spondylosis with facet arthropathy without myelopathy presents today for evaluation s/p BL SI injection #4. Pt states she experienced 90 % pain relief x 3 mo s/p procedure. Pain level is provoked at 8 /10 in intensity, c onstant, localized in the lumbar spine, predominantly axial, achy in character w occasional shooting towards the BL buttocks, groin. Pain is provoked by lifting, sitting. Pain is alleviated with PT x 4 wks in May 2022, chiropractic treatments semi monthly x yrs since 2021 which she is currently in, medications, topicals, ice, walking, repositioning and rest. Interventional pain procedures completed include BL SI injection x4 (05/10/24) Patient is currently on Aleve, Ibu, Icy-Hot Patient denies any side effects of the medication(s), denies excessive drowsiness or sleepiness, denies suicidal ideation and reports that the current pain medication is helping to control the pain and improve activities of daily living. Patient denies any motor or sensory deficits. Patient denies any fever or night sweats, denies any change in the bowel movements or urination. Physical Examination: -Constitutional: Cooperative. Not in acute distress . - Neurologic: Cranial nerve II to XII intact. No focal neurological deficits. - Psychatric: Alert & oriented x 3. Matching mood & appropriate affect. Judgment and insight intact. - Musculoskeletal: Cervical spine: Muscle bulk/ tone/ strength in the bilateral upper extremities normal Vertebral body tenderness to palpation over Spurling test positive Distraction test positive Facet loading test positive TTP Thoracic spine Muscle bulk / tone/ strength in the bilateral paraspinal muscles normal Vertebral body tender to palpation over Facet loading test positive TTP Lumbar spine: Motor bulk/ tone/ strength lower extremities , thigh and legs : 5/5 Deep tendon reflexes : Normal Knee Jerk. Normal Ankle Jerk . Vertebral body tenderness to palpation over Lumbar Facet Loading Test positive Straight Leg Raise: positive at 30 degrees right side/ left side Gaenslen's Test positive Sacral spine : Severe tenderness over the Sacroiliac joint: right side / left side Range of motion: Flexion of the lumbar spine <60 degrees Range of motion: Extension of the lumbar spine <20 degrees +Gaenslen's Test positive right side / left side + Gualberto test: positive right side / left side Thigh Thrust Test positive right side / left side + Sacral Thrust Test positive right side / left side Imaging: X ray Cervical spine from 11/21/23 reviewed MRI non contrast lumbar spine from May 2022 reviewed Assessment and plan: Chronic LBP secondary to radiculopathy, spondylosis with facet arthropathy without myelopathy, BL Sacroiliitis Recommendation of BL SI #1 and Celebrex 100mg #60 w 1RF. Discontinue Ibu. Use, side effects, adverse reactions and safe storage discussed. Would benefit from a repeat MRI Lumbar. Risks, benefits of procedure discussed and patient verbalized understanding. Protocol for discontinuation/continuation of medications surrounding procedure discussed. All questions answered. I have spent less than 30 minutes on patient care today. Dr Ho was available by phone for the evaluation of this patient. The time was used to review the medical records including relevant urine studies and Prescription history (MAPs), review of the available imaging, evaluation and examination of the patient, coordination of care with the medical staff and if applicable referring physicians, as well as creation of the medical record PQRS Narrative: Smoking Status Never smoker Hx Alcohol Use (MH) Yes: SOCIAL Home Medications: Ambulatory Orders Albuterol Inhaler [Ventolin Inhaler] 1 - 2 puff INHALATION Q4-6H PRN 04/25/14 Escitalopram [Lexapro] 5 mg PO HS 04/25/14 Montelukast [Singulair] 10 mg PO HS 04/25/14 Budesonide/Formoterol Fumarate [Symbicort 160-4.5 Mcg Inhaler] 2 puff INHALATION BID 03/22/18 Ezetimibe [Zetia] 10 mg PO HS 09/30/22 Levothyroxine Sodium [Synthroid] 50 mcg PO QAM 09/30/22 Omeprazole 20 mg PO HS 09/30/22 Calcium Carb/Mag Ox/Zinc Sulf [Quz-Wfi-Xlib 334-134-5 mg Tab] 1 each PO DAILY 11/12/22 Carboxymethylcellulose Sodium [Refresh Tears] 1 drop BOTH EYES DIRECTED PRN 11/12/22 Estrogens, Conjugated Cream [Premarin Vaginal Cream] 1 applicator VAGINAL DIRECTED 11/12/22 Multivit-Min/Iron/Folic/Lutein [Centrum Silver Women Tablet] 1 each PO DAILY 11/12/22 Naproxen Sodium [Aleve] 220 - 440 mg PO DIRECTED PRN 11/12/22 [place]-3/Dha/Epa/Fish Oil [Fish Oil 1,000 mg Softgel] 2 each PO DAILY 11/12/22 Ubidecarenone [Co Q-10] 200 mg PO DAILY 11/12/22 Vitamin B Complex 1 each PO DAILY 11/12/22 nitrofurantoin macrocrystaL [Nitrofurantoin] 100 mg PO ONCE PRN 06/09/23 Fluticasone Nasal [place] [Flonase Nasal [place]] 2 spray EA NOSTRIL DAILY PRN 11/29/23 Acetaminophen Tab [Tylenol Tab] 1,000 mg PO Q6HR PRN 05/10/24 Celecoxib [CeleBREX] 100 mg PO BID 30 Days #60 cap 01/24/25 Controlled Substance Measures - Controlled Substance Measures Is patient prescribed a controlled substance at discharge?: No
== END ==
LOC: PNWHC3 11:10
PROVIDERS: ATTEND Anesthesiology
DX: M47.26 Other spondylosis with radiculopathy, lumbar region (principal); M46.1 Sacroiliitis, not elsewhere classified; G89.29 Other chronic pain; Z88.6 Allergy status to analgesic agent
CPT/HCPCS: 99211

== ENCOUNTER → 2025-02-06 | Outpatient (CLI) | payer MEDICARE ==
[2025-02-06 16:49] LABS: Influenza A Not Detected (Not Detectd); Influenza B Not Detected (Not Detectd); RSV Not Detected (Not Detectd)
== END | disposition home or self-care (01) ==
LOC: LABWHC1 15:34
PROVIDERS: ATTEND Internal Medicine Critical Care Medicine
DX: R50.9 Fever, unspecified (principal); R05.9 Cough, unspecified; R09.81 Nasal congestion
CPT/HCPCS: 87636

== ENCOUNTER → 2025-04-16 | Day surgery (SDC) | payer MEDICARE ==
[~2025-04-16] MED LIST changes: +ROPIVACAINE 5 MG/ML 30 ML VIAL ONE; +TRIAMCINOLONE ACETONIDE 40 MG/ML 1 ML VIAL ONE
[2025-04-16 10:09] VITALS: RESP 16; TEMP 97
--- NOTE | 2025-04-16 11:00 | P.PCN ---
Date of Procedure: 04/16/25 Surgeon: Kristen Rodrigez Description of Procedure: Pre- and Post-operative Diagnosis: Bilateral sacroiliitis, bilateral sacroiliac joint dysfunction Procedure: Bilateral sacroiliac Joint steroid injection under biplanar fluoroscopy Surgeon: Kristen Rodrigez MD Anesthesia: Local only: 1% Lidocaine Complications: none Estimated blood loss: None Specimen removed: None Fluoroscopic image: Saved to patient electronic medical records. Procedure and Findings: The patient was seen and examined in the holding area. The written informed consent was obtained after explaining the risks, benefits and alternatives of the procedure to the patient. The patient was brought to the procedure room and was placed in the prone position on the operating room table. A pillow was placed under the lower abdomen. The anesthesia was started as mentioned above and monitoring was done with noninvasive blood pressure cuff, EKG and pulse oximetry. The skin preparation was done with ChloraPrep, and draping was done in usual sterile fashion. Sterile technique was observed throughout the procedure. The right sacroiliac joint was identified under fluoroscopy then the anterior and posterior joint lines were aligned by tilting the C-arm to the contralateral side and inferior one third of this joint line was the target of this injection. I used 25-gauge 2 inch [place]ke spinal needle to go through the skin after localizing it with lidocaine 1% and into the sacroiliac joint under fluoroscopic guidance. I then injected Kenalog 20 mg +1.5 mL of Marcaine 0.5% to a total volume of 2.5 mL. Then the left side was done in the same manner using 20 mg of Kenalog and 1.5 mL of Ropivacaine 0.5%. patient tolerated the procedure well. Patient then was transferred to PACU in stable condition
--- NOTE | 2025-04-16 11:11 | FL ---
EXAMINATION TYPE: FL guided pain mgmt statistic Intraoperative/procedural fluoroscopic services were provided. CLINICAL INDICATION:Female, 70 years old with history of SI JOINT INJECTION; , [facility] FINDINGS: Bilateral SI joint injection. No radiographic evidence for complication. Total fluoroscopy time is 16.2 seconds. DAP: [id number] mGym2 Please see the operative/procedural note for further details. [facility], , 04/16/2025 11:09 AM
[2025-04-16 11:23] VITALS: BP 149/83; PULSE 50
== END ==
LOC: ORPAIN 09:40
PROVIDERS: ATTEND Anesthesiology
DX: M46.1 Sacroiliitis, not elsewhere classified (principal); Z88.6 Allergy status to analgesic agent
CPT/HCPCS: J3301; J2795; G0260

== ENCOUNTER → 2025-05-08 | Outpatient (CLI) | payer MEDICARE ==
[2025-05-08 11:31] VITALS: BP 138/80; PULSE 43; RESP 18
--- NOTE | 2025-05-08 12:25 | XR ---
EXAMINATION TYPE: XR lumbar spine 2 or 3V DATE OF EXAM: 05/08/2025 12:20 PM COMPARISON: [id number] CLINICAL INDICATION: Female, 70 years old with history of M54.16 Radiculopathy M16.9 OA Hip, unspecif i, TECHNIQUE: Frontal, lateral, and oblique images of the lumbar spine are obtained. FINDINGS: There are 5 lumbar type vertebral bodies identified. The lumbar spine shows satisfactory alignment without evidence of acute fracture or dislocation. Vertebral body heights are within normal limits. Grade 1 anterolisthesis L4 on L5 measuring 5 mm related to severe facet joint arthropathy. S evere degenerative disc space narrowing at L5-S1 with vacuum disc noted. Mild curvature convex to the right. The overlying soft tissue appears unremarkable. IMPRESSION: No acute fracture or dislocation is seen in the lumbar spine.ICD 10 NO FRACTURE, INITIAL EVALUATION [facility], , 05/08/2025 12:23 PM
--- NOTE | 2025-05-08 14:20 | P.PAINPG ---
PQRS Measure Charge Sheet Comment: A 70 yr old female with a history of severe and chronic LBP secondary to radiculopathy, spondylosis with facet arthropathy without myelopathy presents today for evaluation s/p BL SI #1. Pt states she experienced 90 % pain relief x 3 wks s/p procedure. Pain level is provoked at 8 /10 in intensity, constant, localized in the lumbar spine, predominantly axial, achy in character w occasional shooting towards the L hip and LLE. Pain is provoked by lifting, sitting. Pain is alleviated with PT x 4 wks in May 2022, chiropractic treatments semi monthly x yrs since 2021 which she is currently in, aquatherapy semi weekly at the [facility] since Jul 2024 till present, medications, topicals, ice, walking, repositioning and rest. Oswestry axial pain score of 28. Interventional pain procedures completed include BL SI injection x4 (05/10/24) Patient is currently on Aleve, Ibu, Icy-Hot Patient denies any side effects of the medication(s), denies excessive drowsiness or sleepiness, denies suicidal ideation and reports that the current pain medication is helping to control the pain and improve activities of daily living. Patient denies any motor or sensory deficits. Patient denies any fever or night sweats, denies any change in the bowel movements or urination. Physical Examination: -Constitutional: Cooperative. Not in acute distress . - Neurologic: Cranial nerve II to XII intact. No focal neurological deficits. - Psychatric: Alert & oriented x 3. Matching mood & appropriate affect. Judgment and insight intact. - Musculoskeletal: Cervical spine: Muscle bulk/ tone/ strength in the bilateral upper extremities normal Vertebral body tenderness to palpation over Spurling test positive Distraction test positive Facet loading test positive TTP Thoracic spine Muscle bulk / tone/ strength in the bilateral paraspinal muscles normal Vertebral body tender to palpation over Facet loading test positive TTP Lumbar spine: +Scoliosis Motor bulk/ tone/ strength lower extremities , thigh and legs : 5/5 Deep tendon reflexes : Normal Knee Jerk. Normal Ankle Jerk . Vertebral body tenderness to palpation over Rodrigues test positive L L5-S1 Lumbar Facet Loading Test positive Straight Leg Raise: positive at 30 degrees right side/ left side Gaenslen's Test positive Sacral spine : Severe tenderness over the Sacroiliac joint: right side / left side Range of motion: Flexion of the lumbar spine <60 degrees Range of motion: Extension of the lumbar spine <20 degrees +Gaenslen's Test positive right side / left side + Gualberto test positive right side / left side Thigh Thrust Test positive right side / left side + Sacral Thrust Test positive right side / left side Imaging: X ray Cervical spine from 11/21/23 reviewed MRI non contrast lumbar spine from May 2022 reviewed Assessment and plan: Chronic LBP secondary to radiculopathy, spondylosis with facet arthropathy without myelopathy, BL Sacroiliitis, Scoliosis Recommendation of x rays lumbosacral spine M54.16, M16.9. All questions answered. I have spent less than 30 minutes on patient care today. Dr Ho was av ailable by phone for the evaluation of this patient. The time was used to review the medical records including relevant urine studies and Prescription history (MAPs), review of the available imaging, evaluation and examination of the patient, coordination of care with the medical staff and if applicable referring physicians, as well as creation of the medical record PQRS Narrative: Smoking Status Never smoker Hx Alcohol Use (MH) Yes: SOCIAL Home Medications: Ambulatory Orders Albuterol Inhaler [Ventolin Inhaler] 1 - 2 puff INHALATION Q4-6H PRN 04/25/14 Escitalopram [Lexapro] 5 mg PO HS 04/25/14 Montelukast [Singulair] 10 mg PO HS 04/25/14 Ezetimibe [Zetia] 10 mg PO HS 09/30/22 Levothyroxine Sodium [Synthroid] 50 mcg PO QAM 09/30/22 Omeprazole 20 mg PO HS 09/30/22 Calcium Carb/Mag Ox/Zinc Sulf [Lxj-Hal-Bhfz 334-134-5 mg Tab] 1 each PO DAILY 11/12/22 Carboxymethylcellulose Sodium [Refresh Tears] 1 drop BOTH EYES DIRECTED PRN 11/12/22 Estrogens, Conjugated Cream [Premarin Vaginal Cream] 1 applicator VAGINAL DIRECTED 11/12/22 Multivit-Min/Iron/Folic/Lutein [Centrum Silver Women Tablet] 1 each PO DAILY 11/12/22 [place]-3/Dha/Epa/Fish Oil [Fish Oil 1,000 mg Softgel] 2 each PO DAILY 11/12/22 Ubidecarenone [Co Q-10] 200 mg PO DAILY 11/12/22 Vitamin B Complex 1 each PO DAILY 11/12/22 Fluticasone Nasal [place] [Flonase Nasal [place]] 2 spray EA NOSTRIL DAILY PRN 11/29/23 Acetaminophen [Tylenol Arthritis] 1,300 mg PO Q6H PRN 04/15/25 Celecoxib [CeleBREX] 100 mg PO BID 04/15/25 Fluticasone Propion/Salmeterol [Wixela 500-50 Inhub] 1 inhalation INHALATION BID 04/15/25 Controlled Substance Measures - Controlled Substance Measures Is patient prescribed a controlled substance at discharge?: No
== END ==
LOC: PNWHC3 11:13
PROVIDERS: ATTEND Specialist
DX: M47.26 Other spondylosis with radiculopathy, lumbar region (principal); M41.9 Scoliosis, unspecified; M46.1 Sacroiliitis, not elsewhere classified; Z88.6 Allergy status to analgesic agent
CPT/HCPCS: 72100; G0463; 99212